=== PATIENT | female | born 2000 | race African-American/Black ===

== ENCOUNTER 2022-03-05 21:17 | Emergency (ER) | payer OTHER ==
[2022-03-05 21:38] VITALS: BP 142/76; PULSE 81; TEMP 97.7; BMI 27.4
[2022-03-05] MEDS ORDERED: ACETAMINOPHEN 325 MG TABLET (FP) PO ONE (22:28)
[2022-03-05] MEDS ORDERED: FAMOTIDINE 20 MG TABLET PO ONE (22:28)
[2022-03-05] MEDS ORDERED: FAMOTIDINE 20 MG TABLET ONE (22:44)
[2022-03-05] MEDS ORDERED: ACETAMINOPHEN 325 MG TABLET (FP) ONE (22:44)
== END 2022-03-05 23:44 | disposition home or self-care (01) ==
LOC: JER 21:17
DX: R10.13 Epigastric pain (principal)
CPT/HCPCS: 99283-25